=== PATIENT | male | born 1970 | race Caucasian/White ===

== ENCOUNTER 2020-05-09 13:48 | Inpatient (IN) | payer MEDICAID ==
[~2020-05-09] VITALS: Ht 172.7 cm; Wt 81.6 kg
[2020-05-09] MEDS ORDERED: METHYLPREDNISOLONE SOD SUCC 125 MG/2 ML VIAL IV STA (14:34)
[2020-05-09] MEDS ORDERED: ALBUTEROL 6.7GM HFA INHALER ORI ONE ×3 (14:45)
[2020-05-09] MEDS ORDERED: NITROGLYCERIN OINT 1GM/INCH UDPKT TD ONE (14:45)
[2020-05-09] MEDS ORDERED: ASPIRIN 81MG TABLET PO ONE (14:45)
[2020-05-09] MEDS ORDERED: FUROSEMIDE 40MG/4ML VIAL IV ONE (14:45)
[2020-05-09 15:26] LABS: BASOPHILS % 0.7 % (0.0-2.0); EOSINOPHILS % 0.5 % (0.0-5.0); HEMATOCRIT. 47.5 % (42.0-52.0); HEMOGLOBIN. 15.3 g/dL (14.0-18.0); LYMPHOCYTES % 16.9 % (20.0-50.0); MEAN CORPUSCULAR HEMOGLOBIN 29.8 pg (28.0-32.0); MEAN CORPUSCULAR VOLUME 92.7 fL (80.0-94.0); MEAN PLATELET VOLUME 8.4 fl (7.4-10.4); MONOCYTES % 14.4 % (2.0-8.0); NEUTROPHILS % 67.5 % (40.0-76.0); PLATELET 124 x1000/uL (130-400); RED BLOOD CELL COUNT 5.13 mill/uL (4.7-6.1); RED CELL DISTRIBUTION WIDTH 15.2 % (11.6-14.6)
[2020-05-09 15:27] LABS: CHLORIDE 92 mEq/L (98-107)
[2020-05-09 15:30] LABS: INR 1.2; PARTIAL THROMBOPLASTIN TIME 26.4 sec (23.4-31.0); PROTHROMBIN TIME 12.4 sec (9.6-11.0)
[2020-05-09 15:32] LABS: CLARITY URINE CLEAR (CLEAR); COLOR URINE YELLOW (YELLOW); KETONES URINE NEGATIVE (NEGATIVE); LEUKOCYTE ESTERASE URINE NEGATIVE (NEGATIVE); NITRITE URINE NEGATIVE (NEGATIVE); OCCULT BLOOD URINE NEGATIVE (NEGATIVE); PROTEIN URINE 1+ (NEGATIVE); SPECIFIC GRAVITY URINE 1.017 (1.005-1.030)
[2020-05-09] MEDS ORDERED: ACETAMINOPHEN 325MG TABLET PO PRN (18:00)
[2020-05-09] MEDS ORDERED: IPRATROPIUM/ALBUTEROL 0.5-3(2.5)MG/3ML NEB HHN PRN (18:00)
[2020-05-09] MEDS ORDERED: ONDANSETRON HCL 4MG/2ML INJ IV PRN (18:00)
[2020-05-09] MEDS ORDERED: DOCUSATE SODIUM 100MG CAPSULE PO PRN (18:00)
[2020-05-09] MEDS ORDERED: CLONIDINE 0.1MG TABLET PO PRN (18:00)
[2020-05-09] MEDS ORDERED: DEXAMETHASONE XX SCH (18:00)
[2020-05-09] MEDS ORDERED: HYDROCODONE/ACETAMINOPHEN 5/325MG TABLET PO PRN (18:00)
[2020-05-09] MEDS: FUROSEMIDE 40MG/4ML VIAL IV SCH (18:43)
[2020-05-09] MEDS ORDERED: CEFTRIAXONE 1 G PREMIX 50 ML IV SCH (18:45)
[2020-05-09 18:49] LABS: BG BASE EXCESS 10.8 mmol/L (-2.0-2.0); BG CARBOXYHEMOGLOBIN 6.3 % (0.5-1.5); BG DEOXYHEMOGLOBIN 26.5 % (0.0-5.0); BG FRACTION INSPIRED OXYGEN 21; BG HCO3 ACT 45.1 mmol/L (22.0-26.0); BG METHEMOGLOBIN 0.3 % (0.0-1.5); BG OXYGEN SATURATION 71.6 % (92.0-98.5); BG OXYHEMOGLOBIN 66.9 % (94.0-97.0); BG PCO2 115.3 mmHg (35.0-45.0); BG PO2 40.2 mmHg (75.0-100.0); BG SAMPLE SITE RIGHT RADIAL; BG VENT MODE ROOM AIR
[2020-05-09] MEDS ORDERED: ALBUTEROL 6.7GM HFA INHALER ORI PRN (19:00)
[2020-05-09] MEDS ORDERED: AZITHROMYCIN 500 MG in DEXT 5% WATER 250 ML IV SCH (20:00)
[2020-05-09] MEDS: ENOXAPARIN 40MG/0.4ML SYR SUBCUT SCH (20:42)
[2020-05-09] MEDS: DEXAMETHASONE 4MG TABLET PO SCH (20:42)
[2020-05-09 22:44] VITALS: BP 131/90
[2020-05-10] VITALS: BP 131/90
[2020-05-10] MEDS ORDERED: NITR1PAT59 TP (02:35)
[2020-05-10] MEDS ORDERED: LISI-651 PO (02:35)
[2020-05-10] MEDS ORDERED: BISA10SU62 RC (02:35)
[2020-05-10] MEDS ORDERED: INSU100I24 SQ (02:35)
[2020-05-10] MEDS ORDERED: TOPUD PO (02:35)
[2020-05-10] MEDS ORDERED: NATE60TA PO (02:35)
[2020-05-10] MEDS ORDERED: GLUC1KIT IM (02:35)
[2020-05-10] MEDS ORDERED: DOCU-138 PO (02:35)
[2020-05-10] MEDS ORDERED: POLY17PO3 PO (02:35)
[2020-05-10] MEDS ORDERED: MOM PO (02:35)
[2020-05-10] MEDS ORDERED: DEXT15SY3 PO (02:35)
[2020-05-10] MEDS ORDERED: ATOR10TA PO (02:35)
[2020-05-10] MEDS ORDERED: ASPI-986 PO (02:35)
[2020-05-10] MEDS ORDERED: PANT40TA4 PO (02:35)
[2020-05-10] MEDS ORDERED: ACET250T26 PO ×2 (02:35)
[2020-05-10] MEDS ORDERED: RISP2 PO (02:35)
[2020-05-10] MEDS ORDERED: HYDR-3281 PO (02:35)
[2020-05-10] MEDS ORDERED: TRAZ-252 PO (02:35)
[2020-05-10 04:00] VITALS: BP 111/70
[2020-05-10 06:27] LABS: BASOPHILS % 0.1 % (0.0-2.0); HEMATOCRIT. 48.5 % (42.0-52.0); HEMOGLOBIN. 15.4 g/dL (14.0-18.0); LYMPHOCYTES % 7.6 % (20.0-50.0); MEAN CORPUSCULAR HEMOGLOBIN 29.5 pg (28.0-32.0); MEAN CORPUSCULAR VOLUME 93.1 fL (80.0-94.0); MEAN PLATELET VOLUME 8.6 fl (7.4-10.4); MONOCYTES % 3.4 % (2.0-8.0); NEUTROPHILS % 88.9 % (40.0-76.0); PLATELET 113 x1000/uL (130-400); RED BLOOD CELL COUNT 5.21 mill/uL (4.7-6.1); RED CELL DISTRIBUTION WIDTH 15.5 % (11.6-14.6)
[2020-05-10 06:28] LABS: CHLORIDE 87 mEq/L (98-107)
[2020-05-10 06:35] LABS: LDL CHOLESTEROL 77 mg/dL (5-100)
[2020-05-10 06:37] LABS: HDL CHOLESTEROL 40 mg/dL (40-59)
[2020-05-10 08:00] VITALS: BP 119/53
[2020-05-10] MEDS: FUROSEMIDE 40MG/4ML VIAL IV SCH (09:15)
[2020-05-10] MEDS: DEXAMETHASONE 4MG TABLET PO SCH (09:15)
[2020-05-10 12:00] VITALS: BP 103/55
[2020-05-10 12:09] LABS: *AMPHETAMINES SCREEN URINE NEGATIVE (NEGATIVE); *BARBITURATES SCREEN URINE NEGATIVE (NEGATIVE); *BENZODIAZEPINES SCREEN URINE NEGATIVE (NEGATIVE); *COCAINE SCREEN URINE NEGATIVE (NEGATIVE); METHADONE URINE SCREEN NEGATIVE (NEGATIVE); OPIATES URINE SCREEN NEGATIVE (NEGATIVE); PHENCYCLIDINE URINE SCREEN NEGATIVE (NEGATIVE)
[2020-05-10 12:10] LABS: CANNABINOID URINE SCREEN NEGATIVE (NEGATIVE)
[2020-05-10] MEDS ORDERED: CEFTRIAXONE 1,000 MG in DEXTROSE 5% WATER 50 ML IV SCH (14:00)
[2020-05-10] MEDS: ASPIRIN 81MG TABLET PO SCH (15:39)
[2020-05-10] MEDS: LORAZEPAM 0.5MG TABLET PO PRN ×2 (15:49→20:52)
[2020-05-10 16:00] VITALS: BP 100/56
[2020-05-10 20:00] VITALS: BP 133/83
[2020-05-10] MEDS ORDERED: CEFTRIAXONE 1 G PREMIX 50 ML IV SCH (20:00)
[2020-05-10] MEDS: ATORVASTATIN CALCIUM 20MG TABLET PO SCH (20:52)
[2020-05-10] MEDS: FUROSEMIDE 40MG TABLET PO SCH (20:52)
[2020-05-10] MEDS: ENOXAPARIN 40MG/0.4ML SYR SUBCUT SCH (20:54)
[2020-05-10] MEDS ORDERED: AZITHROMYCIN 500 MG in DEXT 5% WATER 250 ML IV SCH (21:00)
[2020-05-11] VITALS (7 sets, daily range): BP systolic 106–139; BP diastolic 60–89
[2020-05-11] MEDS: ASPIRIN 81MG TABLET PO SCH (08:42)
[2020-05-11] MEDS: PREDNISONE 20MG TABLET PO SCH (08:42)
[2020-05-11] MEDS: FUROSEMIDE 40MG TABLET PO SCH ×3 (09:00→16:26)
[2020-05-11 10:42] LABS: BASOPHILS % 0.3 % (0.0-2.0); EOSINOPHILS % 0.1 % (0.0-5.0); HEMATOCRIT. 48.3 % (42.0-52.0); HEMOGLOBIN. 15.4 g/dL (14.0-18.0); LYMPHOCYTES % 10.6 % (20.0-50.0); MEAN CORPUSCULAR HEMOGLOBIN 29.4 pg (28.0-32.0); MEAN CORPUSCULAR VOLUME 92.4 fL (80.0-94.0); MEAN PLATELET VOLUME 8.7 fl (7.4-10.4); MONOCYTES % 11.8 % (2.0-8.0); NEUTROPHILS % 77.2 % (40.0-76.0); PLATELET 131 x1000/uL (130-400); RED BLOOD CELL COUNT 5.23 mill/uL (4.7-6.1); RED CELL DISTRIBUTION WIDTH 15.2 % (11.6-14.6)
[2020-05-11 10:45] LABS: CHLORIDE 79 mEq/L (98-107)
[2020-05-11] MEDS: MAGNESIUM GLUCONATE 500MG TABLET PO SCH (16:26)
[2020-05-11] MEDS ORDERED: SODIUM POLYSTYRENE SULFONATE 15 G/60 ML BOT PO NR (16:30)
[2020-05-11] MEDS: NATEGLINIDE 60MG TABLET PO SCH (17:21)
[2020-05-11] MEDS: ACETAMINOPHEN 325MG TABLET PO PRN (17:25)
[2020-05-11] MEDS: RISPERIDONE 1MG TABLET PO SCH (21:57)
[2020-05-11] MEDS: ATORVASTATIN CALCIUM 20MG TABLET PO SCH (21:57)
[2020-05-11] MEDS: ENOXAPARIN 40MG/0.4ML SYR SUBCUT SCH (21:58)
[2020-05-11] MEDS: TRAZODONE HCL 50MG TABLET PO SCH (22:00)
[2020-05-11] MEDS ORDERED: IOHEXOL-350 100 ML BOTTLE ONE (23:10)
[2020-05-12] VITALS: BP 116/76
[2020-05-12 04:00] VITALS: BP 120/75
[2020-05-12] MEDS: PANTOPRAZOLE 40MG DR TABLET PO SCH (06:16)
[2020-05-12 06:34] LABS: CHLORIDE 75 mEq/L (98-107)
[2020-05-12 06:44] LABS: BASOPHILS % 0.3 % (0.0-2.0); EOSINOPHILS % 0.1 % (0.0-5.0); HEMATOCRIT. 49.3 % (42.0-52.0); HEMOGLOBIN. 15.9 g/dL (14.0-18.0); LYMPHOCYTES % 15.2 % (20.0-50.0); MEAN CORPUSCULAR HEMOGLOBIN 29.2 pg (28.0-32.0); MEAN CORPUSCULAR VOLUME 90.4 fL (80.0-94.0); MEAN PLATELET VOLUME 8.5 fl (7.4-10.4); MONOCYTES % 11.6 % (2.0-8.0); NEUTROPHILS % 72.8 % (40.0-76.0); PLATELET 120 x1000/uL (130-400); RED BLOOD CELL COUNT 5.45 mill/uL (4.7-6.1); RED CELL DISTRIBUTION WIDTH 15.4 % (11.6-14.6)
[2020-05-12 08:00] VITALS: BP 120/78
[2020-05-12] MEDS ORDERED: ASPIRIN 325MG TABLET PO SCH (09:00)
[2020-05-12] MEDS: NATEGLINIDE 60MG TABLET PO SCH ×2 (09:59→15:11)
[2020-05-12] MEDS: ASPIRIN 81MG TABLET PO SCH (09:59)
[2020-05-12] MEDS: MAGNESIUM GLUCONATE 500MG TABLET PO SCH (09:59)
[2020-05-12] MEDS: LISINOPRIL 10MG TABLET PO SCH (09:59)
[2020-05-12] MEDS: PREDNISONE 20MG TABLET PO SCH (09:59)
[2020-05-12] MEDS: FUROSEMIDE 40MG TABLET PO SCH ×2 (10:00→15:11)
[2020-05-12] MEDS: ACETAZOLAMIDE 250MG TABLET PO SCH (10:34)
[2020-05-12 12:00] VITALS: BP 116/69
[2020-05-12] MEDS ORDERED: FURO40TA5 PO (15:19)
[2020-05-12 16:00] VITALS: BP 141/88
[2020-05-12 20:00] VITALS: BP 138/93
[2020-05-12] MEDS: ENOXAPARIN 40MG/0.4ML SYR SUBCUT SCH (21:11)
[2020-05-12] MEDS: TRAZODONE HCL 50MG TABLET PO SCH (21:11)
[2020-05-12] MEDS: RISPERIDONE 1MG TABLET PO SCH (21:12)
[2020-05-12] MEDS: ATORVASTATIN CALCIUM 20MG TABLET PO SCH (21:12)
[2020-05-13] VITALS: BP 130/90
[2020-05-13 04:00] VITALS: BP 116/73
[2020-05-13] MEDS: PANTOPRAZOLE 40MG DR TABLET PO SCH (05:38)
[2020-05-13] MEDS: ASPIRIN 81MG TABLET PO SCH (08:34)
[2020-05-13] MEDS: PREDNISONE 20MG TABLET PO SCH (08:35)
[2020-05-13] MEDS: ACETAZOLAMIDE 250MG TABLET PO SCH (08:36)
[2020-05-13] MEDS: MAGNESIUM GLUCONATE 500MG TABLET PO SCH (08:36)
[2020-05-13] MEDS: NATEGLINIDE 60MG TABLET PO SCH ×4 (08:39→17:32)
[2020-05-13] MEDS: LISINOPRIL 10MG TABLET PO SCH (08:40)
[2020-05-13] MEDS: FUROSEMIDE 40MG TABLET PO SCH ×4 (08:40→17:31)
[2020-05-13] MEDS: ACETAMINOPHEN 325MG TABLET PO PRN (09:31)
[2020-05-13 12:00] VITALS: BP 122/83
[2020-05-13 20:00] VITALS: BP 119/84
[2020-05-13] MEDS: ENOXAPARIN 40MG/0.4ML SYR SUBCUT SCH (21:36)
[2020-05-13] MEDS: RISPERIDONE 1MG TABLET PO SCH (21:36)
[2020-05-13] MEDS: ATORVASTATIN CALCIUM 20MG TABLET PO SCH (21:36)
[2020-05-13] MEDS: TRAZODONE HCL 50MG TABLET PO SCH (21:36)
[2020-05-14] VITALS: BP 141/87
[2020-05-14 04:00] VITALS: BP 121/78
[2020-05-14] MEDS: PANTOPRAZOLE 40MG DR TABLET PO SCH (06:05)
[2020-05-14 08:00] VITALS: BP 146/50
[2020-05-14] MEDS: MAGNESIUM GLUCONATE 500MG TABLET PO SCH (09:25)
[2020-05-14] MEDS: ACETAZOLAMIDE 250MG TABLET PO SCH (09:25)
[2020-05-14] MEDS: NATEGLINIDE 60MG TABLET PO SCH (09:25)
[2020-05-14] MEDS: ASPIRIN 81MG TABLET PO SCH (09:25)
[2020-05-14] MEDS: FUROSEMIDE 40MG TABLET PO SCH (09:25)
[2020-05-14 10:51] VITALS: BP 18/146
== END 2020-05-14 12:59 | DRG 133 ==
LOC: ER 13:48 → 7WST 17:09 → ENRESERV 20:09 → 8WST 05-10 09:31
PROVIDERS: ADMIT Internal Medicine; ATTEND Internal Medicine
DX: J96.01 Acute respiratory failure with hypoxia (principal); I11.0 Hypertensive heart disease with heart failure; I50.33 Acute on chronic diastolic (congestive) heart failure; I25.10 Atherosclerotic heart disease of native coronary artery without angina pectoris; D69.6 Thrombocytopenia, unspecified; F20.9 Schizophrenia, unspecified; J44.1 Chronic obstructive pulmonary disease with (acute) exacerbation; I48.0 Paroxysmal atrial fibrillation; I27.21 Secondary pulmonary arterial hypertension; E87.5 Hyperkalemia; E87.2 Acidosis; F17.210 Nicotine dependence, cigarettes, uncomplicated; E11.9 Type 2 diabetes mellitus without complications; Z99.81 Dependence on supplemental oxygen; Z03.818 Encounter for observation for suspected exposure to other biological agents ruled out; R62.50 Unspecified lack of expected normal physiological development in childhood
CPT/HCPCS: 36415; 36600; 71045; 71275; 80048; 80053; 80061; 80305; 81003; 82375; 82805; 83036; 83605; 83735; 83880; 84145; 84484; 85025; 93005; 93306; 94640; 99285; J0456; J0696; J1650; J1940; J2930; J7060; J7512; J8540; Q9967; U0003-CS